=== PATIENT | male | born 1970 | race Caucasian/White ===

== ENCOUNTER 2016-12-20 09:38 | Emergency (ER) | payer OTHER ==
[~2016-12-20] VITALS: Ht 180.3 cm; Wt 49.0 kg
[2016-12-20 09:59] VITALS: BP 185/115; PULSE 83; RESP 16; O2SAT 98
[2016-12-20 10:51] LABS: BASOPHILS % (AUTO) 0.3 % (0-3); EOSINOPHILS % (AUTO) 0.5 % (0-5); MONOCYTES % (AUTO) 5.1 % (4-12); Mean Corpuscular Volume 83.2 fL (81-100); Platelet Count 347 bil/L (150-400)
--- NOTE | 2016-12-20 12:36 | ED.REPORT ---
HPI- Female Date of Service Dec 20, 2016 ED Provider: Marily Porras History of Present Illness: abscess on left testicle, draining at present since . kristin is primary care at [facility]. PCP called [facility]. no hx of diabetes laying 09/20 sitting or standing 01/18 Nursing Notes Stated Complaint: TESTICLE PAIN Chief Complaint: Male Abdominal Pain Nursing Notes Reviewed: Yes Allergies: Coded Allergies: No Known Allergies (Unverified , 12/20/16) General Time Seen by MD: 12:35 Chief Complaint Other (scrotal abscess) Hx Obtained From: Patient Sudden in Onset?: No Symptom Duration: Since onset Severity: Current: Pain level 1 out of 10 Past Medical History Past Medical History Denies: Asthma Past Surgical History denies Smoking History Never Smoker Social History chew tobacco quit on 08/2015 Alcohol Use: "Social" Drug Use: Denies drug use Other Social History: Occupation work at [employer] 12/20/2016 Review of Systems Basic Review of Systems Eyes: Vision NL, No discharge Hematologic: No bleeding, No bruising Psychiatric: Normal thought content Physical Exam Initial Vital Signs Vital Signs (First) Date Time Temp Pulse Resp B/P Pulse Ox O2 Delivery O2 Flow Rate FiO2 12/20/16 09:59 37.2 83 16 185/115 98 Room Air Initial VS: Reviewed, Vital signs abnormal General/Constitutional: Well-developed, Well-nourished Head / Eyes: Atraumatic, Normocephalic, PERRL ENT: Mucous membranes moist, Conjunctiva normal, No scleral icterus Neck: Supple, Non-tender, Full range of motion Respiratory: Breath sounds normal, Clear to auscultation, No respiratory distress Cardiovascular: Regular rate & rhythm, Heart sounds normal, Intact distal pulses Abdomen / GI: Soft, Non-tender, No guarding, No rebound, No distention Back: No CVA tenderness Lymphatic: No lymphadenopathy Extremities: Vascular intact, Neuro intact, No swelling, No tenderness Skin: Warm, Dry, No cyanosis Neurologic: Alert, Oriented, Nonfocal Psychiatric: Mood/affect normal, Behavior normal, Normal thought content General/Constitutional: Awake, Alert, No acute distress, Well appearing, Well developed, Well hydrated Respiratory / Chest: Atraumatic, Breath sounds NL, Breath sounds = bilat Cardiovascular: Heart rate NL, Regular rhythm, Heart sounds NL, No gallop Additional Physical Exam: small opening on bottom of scrotal sac abut 3 mm in size. scant amount of discharge out , sample obtained and sent for culture. Skin is with increased warmth Interpretation & Diagnostics Lab Results Interpretation Result Diagram: 12/20/16 1041 12/20/16 1041 Test 12/20/16 10:41 12/20/16 10:50 12/20/16 13:00 12/20/16 13:30 White Blood Count 9.5th/mm3 (3.8-10.1) Red Blood Count 5.37mil/mm3 (4.40-5.80) Hemoglobin 16.1g/dL (13.8-17.2) Hematocrit 44.7% (41.0-50.0) Mean Corpuscular Volume 83.2fL (81-100) Mean Corpuscular Hemoglobin 30.0pg (27.0-35.0) Mean Corpuscular Hemoglobin Concent 36.0% (32.0-37.0) Red Cell Distribution Width 12.8% (12.3-15.4) Platelet Count 347bil/L (150-400) Neutrophils (%) (Auto) 77.0% (40-74) Lymphocytes (%) (Auto) 16.8% (14-46) Monocytes (%) (Auto) 5.1% (4-12) Eosinophils (%) (Auto) 0.5% (0-5) Basophils (%) (Auto) 0.3% (0-3) Sodium Level 135mEq/L (134-144) Potassium Level 3.9mEq/L (3.5-5.2) Chloride Level 97mEq/L (97-108) Carbon Dioxide Level 21mmol/L (18-29) Blood Urea Nitrogen 12mg/dL (6-24) Creatinine 1.22mg/dL (0.76-1.27) Estimat Glomerular Filtration Rate 69mL/min (>59) Glucose Level 329mg/dL (60-99) Calcium Level 10.2mg/dL (8.5-10.1) Total Bilirubin 0.8mg/dL (0.0-1.2) Aspartate Amino Transf (AST/SGOT) 39U/L (0-50) Alanine Aminotransferase (ALT/SGPT) 112U/L (0-44) Alkaline Phosphatase 106U/L (25-150) Total Protein 9.9g/dL (6.4-8.4) Albumin 4.5g/dL (3.4-5.0) Thyroid Stimulating Hormone (TSH) 1.650uIU/mL (0.450-4.500) Lactic Acid Level 1.8mmol/L (0.4-2.0) US Focused non-OB Pelvis PROCEDURE: US TESTICULAR AND SCROTAL SONOGRAM ([id number]) INDICATIONS: abscess TECHNIQUE: Real-time scanning was performed of the scrotum and testicles, with image documentation. Color and pulse Doppler interrogation was performed of both testicles. COMPARISON: None. FINDINGS: Right: Testicle is normal in size at 4.4 x 2.4 x 3.3 cm, and homogenous in echotexture. Epididymis is normal in overall size and morphology. No hydrocele or varicoceles. Overlying scrotal skin is normal in thickness. Left: Testicle is normal in size at 4.6 x 2.2 x 3.0 cm, and homogeneous in echotexture. Epididymis is normal in overall size and morphology, except for an incidental 4 mm cyst/spermatocele. No hydrocele or varicoceles. There is marked scrotal and perianal soft tissue edema with heterogeneous appearance. No discrete abscess is seen. There is associated hyperemia. Doppler: Color and pulse Doppler demonstrate normal and symmetric arterial flow in both testicles. IMPRESSION: Prominent heterogeneous and hyperemic left scrotal and perianal soft tissue edema. No discrete abscess seen. Dictated by: Anand Nagy M.D. on 12/20/2016 at 14:39 Approved by: Anand Nagy M.D. on 12/20/2016 at 14:40 Re-Eval/Medical Decision Med Decision/Clinical Course 46 year old male with draining scrotal sac since Monday. Primary care provided in [facility] contacted Dr. Damon and patient sent to ER for evualation. Patient with elevated blood sugar, no dx of diabetes. Us does not show any focal abscess. Consult with DR. Damon, give a dose of rocephin and send home on augmentin. to follow with Dr. Damon later this week opr next week. No sign of condyloma or laceration Discharge & Departure Impression: Primary Impression: Cellulitis of scrotum Additional Impressions: Abscess of scrotal wall Diabetes Diabetes mellitus type: type 2 Diabetes mellitus complication status: without complication Disposition: Home Patient Instructions: Cellulitis (ED), Diabetes Mellitus Type 2 in Adults (ED) Additional Instructions: Your labs indicate that you are diabetic. Your blood sugar was 359 and you had glucose in your urine. Start metformin 250 mg daily until you can see primary care. They likely will increase the dose. You should see them this week. An A1C has been added on. It should be available on Monday or . You have been given fluids in the ER. Also I called Dr. Damon, he would like you on augmentin. You have had the first dose in the ER. A culture has been taken of the discharge. Make sure you get warm soaks. Sit in the bath tub or stand and put warm water to the site at least 3 times a day for 15 to 20 minutes each time. Ultrasound does not show any focal abscess. Stop at any sports store and see about getting a jock strap. That will really help with the discomfort. Can use hydrocodone 1 up to 2 times a day as needed for severe pain. Your blood pressure is elevated also. Start lisinopril to help with control. Note for off work thru 12/27/2016. Referrals: ZACKERY HONG MD (PCP) Zach Damon MD EDSupervising Provider for APC: Jesse Hernandez MD copies to: Zach Damon MD; ZACKERY HONG MD, Sue ARNP Dec 20, 2016 12:36
[2016-12-20] MEDS ORDERED: 0.9% Sodium Chloride 1,000 ML IV ONE (12:45)
[2016-12-20 13:56] VITALS: BP 146/93; PULSE 81; RESP 16; O2SAT 97
[2016-12-20] MEDS ORDERED: cefTRIAXone Inj 1,000 MG in Dextrose 5% Minibag Plus 50 ML IV ONE (14:05)
[2016-12-20] MEDS ORDERED: Amoxicillin-Clav 875-125 mg Tablet PO ONE (14:05)
--- NOTE | 2016-12-20 14:42 | DRSVH ---
PROCEDURE: US TESTICULAR AND SCROTAL SONOGRAM ([id number]) INDICATIONS: abscess TECHNIQUE: Real-time scanning was performed of the scrotum and testicles, with image documentation. Color and p ulse Doppler interrogation was performed of both testicles. COMPARISON: None. FINDINGS: Right: Testicle is normal in size at 4.4 x 2.4 x 3.3 cm, and homogenous in echotexture. Epididymis is normal in overall size and morphology. No hydrocele or varicoceles. Overlying scrotal skin is no rmal in thickness. Left: Testicle is normal in size at 4.6 x 2.2 x 3.0 cm, and homogeneous in echotexture. Epididymis is normal in overall size and morphology, except for an incidental 4 mm cyst/spermatocele. No hydroc ricardo or varicoceles. There is marked scrotal and perianal soft tissue edema with heterogeneous appeara nce. No discrete abscess is seen. There is associated hyperemia. Doppler: Color and pulse Doppler demonstrate normal and symmetric arterial flow in both testicles. IMPRESSION: Prominent heterogeneous and hyperemic left scrotal and perianal soft tissue edema. No dis crete abscess seen. Dictated by: Anand Nagy M.D. on 12/20/2016 at 14:39 Approved by: Anand Nagy M.D. on 12/20/2016 at 14:40
[2016-12-20 15:11] VITALS: BP 146/93; PULSE 81; RESP 16; O2SAT 97
== END 2016-12-20 14:31 | disposition home or self-care (01) ==
LOC: SED 09:38
DX: N49.2 Inflammatory disorders of scrotum (principal); E11.9 Type 2 diabetes mellitus without complications
CPT/HCPCS: 76870; 80053; 82948; 83036; 83605; 84443; 85025; 87070; 87147; 87205; 87491; 87591; 96361; 96365; 99285; J0696; J7030